=== PATIENT | male | born 1980 | race Two or more races ===

== ENCOUNTER 2024-08-18 21:20 | Emergency (ER) | payer OTHER ==
[~2024-08-18] VITALS: Ht 172.7 cm; Wt 63.0 kg
[2024-08-18 21:28] VITALS: TEMP 97.7
[2024-08-19] MEDS: HYDROCODONE/ACETAMINOPHEN 5-325 MG TABLET PO ONE (02:36)
[2024-08-19] MEDS: LIDOCAINE 5% TRANSDERMAL PATCH TD ONE (02:36)
[2024-08-19] MEDS: IBUPROFEN 400 MG TABLET PO ONE (02:36)
[2024-08-19 05:28] VITALS: BP 132/95; PULSE 95; RESP 16; O2SAT 98
== END 2024-08-19 05:36 | disposition home or self-care (01) ==
LOC: EMS 21:20
DX: S20.212A Contusion of left front wall of thorax, initial encounter (principal); I10 Essential (primary) hypertension; F10.20 Alcohol dependence, uncomplicated; W10.9XXA Fall (on) (from) unspecified stairs and steps, initial encounter; Y93.89 Activity, other specified; Y92.89 Other specified places as the place of occurrence of the external cause; Y99.8 Other external cause status
CPT/HCPCS: 71101; 99284; Z7502; Z7610